=== PATIENT | female | born 2000 | race Hispanic/Latino ===

== ENCOUNTER 2020-01-15 09:42 | Emergency (ER) | payer MEDICAID, SELFPAY ==
[2020-01-15 09:44] VITALS: BP 121/84; PULSE 85; RESP 18; TEMP 36.3; O2SAT 99; BMI 37.2
[2020-01-15 09:51] VITALS: RESP 16
--- NOTE | 2020-01-15 10:02 | EKG12_ITS ---
Test Reason : ABD PAIN Blood Pressure : / mmHG Vent. Rate : 076 BPM Atrial Rate : 076 BPM P-R Int : 160 ms QRS Dur : 070 ms QT Int : 374 ms P-R-T Axes : 059 040 039 degrees QTc Int : 420 ms Normal sinus rhythm with sinus arrhythmia Normal ECG Confirmed by MANDY CROFT, MEET ([id number]), editorial project manager JOSE ROBERTO TRENT ([id number]) on 01/18/2020 1:19:06 PM Referred By: PETER Confirmed By:MEET GALVAN MD
--- NOTE | 2020-01-15 10:04 | ED.DCSUM_ITS ---
- ER Visit Summary Date of Service: 01/15/20 Chief Complaint: Abdominal pain History of Present Illness: The patient is a 19 F who lives in [place]. 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 She reports that she has abdominal pain that began approximately 1 week ago. Is a continuous waxing and waning cramping pain. It is 10 out of 10 at worst 9 out of 10 currently. It is worsened by breathing. Is unchanged with movement. Nothing makes this better. She is had nausea without vomiting. No diarrhea. Her last bowel was yesterday. No melena or hematochezia. She denies dysuria, but has had frequency. Patient last menstrual period was December 04. She denies any vaginal bleeding or discharge. She is a G0, P0 and is sexually active. On review of systems patient reports that she has chest pain that is been constant and sharp for the past week. 10 out of 10 at worst and 6 out of 10 currently. It is unchanged by exertion or deep breaths. Is decreased with laying down. She denies any trauma to her chest. She also complains of a headache that is 10 out of 10 in severity. Is a diffuse throbbing pain. She does have a history of similar headaches. She denies any injury to her head. Physical Examination: Vitals: Stable. Afebrile. General: Well-nourished and well-developed. Head: Normocephalic atraumatic. Neck: Supple, no lymphadenopathy. No JVD. Nontender. Cardiovascular: Regular rate and rhythm. No murmurs. Respiratory: No respiratory distress. Clear to auscultation bilaterally. Abdominal: Soft, mild diffuse tenderness to palpation, nondistended, normal bowel sounds. No guarding, rebound, or peritoneal signs. Back: Nontender. Extremities: Nontender, no edema. Skin: Normal color, no rash. Neurologic: Alert and oriented ?3. Cranial nerves II through XII are intact. Normal strength and sensation. Psych: Normal affect. Test Results: EKG is sinus at 76 with no acute changes. CBC is normal. Chem-7 is more for chloride of 108. LFTs are marked for globulin 4.3. Lipase is 64. Quantitative hCG was 192. Urinalysis has excite esterase and 1+ bacteria. Clinical Impression(s) from Imaging Studies Obstetrics Ultrasound 01/15/20 10:47 IMPRESSION: No intrauterine gestation is seen. Thickened endometrium. Dominant follicle in the left ovary. Electronically Signed: Wally Carver, at 11:54 EDT , Service support , Emergency Department Course and Treatment: Patient had an IV placed. She was given a liter normal saline. She was given Toradol and Reglan IV. She is resting more comfortably. Urine was sent for culture. Treatment Plan: Patient was discussed with Dr. Read. She will be discharged with a prescription Zofran. She is given an order for a repeat quantitative hCG in 3 days. Instructed to follow-up in the office following that. Return to the emergency department for any worsening symptoms. Disposition: To home in improved and stable condition. Impression: 1. Early . 2. Abdominal pain. 3. Bacteriuria. This note was generated with [facility] dictation software. It may contain incorrect words, spelling, and punctuation that were not noted in review of the chart prior to signing ED Disposition - Plan for ED Patient: Instructions: ED ECTOPIC RULE OUT Prescriptions: Ondansetron [Zofran Odt] 4 mg PO Q8H PRN PRN #10 tablet PRN Reason: Nausea Referrals: Alisa Birmingham MD [STAFF PHYSICIAN] - 01/18/20
[2020-01-15] MEDS: 0.9% Normal Saline 1,000 ML 1000 ML IV (10:35)
[2020-01-15 10:42] LABS: Absolute Neutrophil Count 3.9 X10^3/uL (2.0-7.7); Basophil# 0.03 X10^3/uL; Basophil% 0.5 % (0-1); Eosinophil# 0.16 X10^3/uL; Eosinophils% 2.6 % (0-5); Hematocrit 38.1 % (37-47); Hemoglobin 12.4 g/dL (12.0-15.0); Lymphocyte % 25.6 % (19-41); Mean Corp Hgb Conc 32.5 g/dL (32-36); Mean Corpuscular Hgb 28.6 pg (27.0-32.0); Mean Platelet Vol. 10.1 fl (6.2-12.0); Monocyte# 0.49 X10^3/uL; Monocyte% 7.9 % (0-10); NRBC Flagged by Analyzer 0 % (0-5); Neutrophil # 3.94 X10^3/uL (2.7-7.7); Neutrophil % 63.1 % (47-70); Platelet Count 242 K/mm3 (150-450); RBC Distribution Width CV 12.6 % (11.6-14.6); RBC Distribution Width SD 40.2 fl (35.1-43.9); Red Blood Count 4.33 M/mm3 (4.2-5.4); White Blood Count 6.2 K/mm3 (4.4-11.0)
[2020-01-15 10:45] LABS: Internal QC Validated? YES +Cl - CLEAR BKGD
[2020-01-15 10:46] LABS: Pregnancy, Serum, hCG Quali. POSITIVE Negative
--- NOTE | 2020-01-15 10:47 | US_ITS ---
STUDY: FIRST TRIMESTER OBSTETRICAL ULTRASOUND REASON FOR EXAM: Female, 19 years old RUQ PAIN HCG 192- LMP WAS IN THE BEGIN ING OF DECEMBER, UNSURE OF DATE LMP: Early December. TECHNIQUE: Transvaginal TECHNICAL QUALITY: Adequate. PRIOR ULTRASOUND: None. FINDINGS: There is no demonstrated intrauterine gestational sac. There is a visualized yolk sac. The placenta is non-visualized. There is no demonstrated embryo ( pole). The uterus measures 8 cm x 5.3 cm x 4.1 cm. There is no demonstrated uterine fibroid. The cervix is closed. The endometrium is thickened and measures 13 mm. The right ovary measures 3.1 cm x 2.3 cm x 1.6 cm. There is no right ovarian cyst. There is no visualized right adnexal mass or complex lesion. The left ovary measures 4.1 cm x 2.6 cm x 3 cm. A dominant follicle is seen within the ovary measuring 1.7 cm x 1.6 cm x 1.6 cm. There is no visualized left adnexal mass or complex lesion. There is no fluid in the cul de sac. US/Transvaginal w/Preg US IMPRESSION: No intrauterine gestation is seen. Thickened endometrium. Dominant follicle in the left ovary. Electronically Signed: Wally Carver, at 11:54 EDT , Service support ,
[2020-01-15 10:53] LABS: ALB/GLOB Ratio 0.9 RATIO (0.9-2.4); AST(SGOT) 18 U/L (15-37); Alanine Aminotransfer ALT/SGPT 17 U/L (13-56); Albumin, Serum 3.8 g/dL (3.2-5.0); Alkaline Phosphatase 85 U/L (45-117); Anion Gap 5 (5-15); BUN 8 mg/dL (7-18); BUN/Creat Ratio 11.5 RATIO (10-20); Chloride 108 mmol/L (98-107); EST Glomerular Filtration Rate 114 mL/min (>60); Est Glom Filt Rate - Afr Amer 138 mL/min (>60); Estimated Creatinine Clearance 106.05 ml/min; Globulin 4.3 g/dL (2.2-4.2); Glucose 86 mg/dL (74-106); Lipase 64 U/L (73-393); Potassium 4.1 mmol/L (3.5-5.1); Protein, Total 8.1 g/dL (6.4-8.2); Sodium Level 137 mmol/L (136-145)
[2020-01-15 11:05] LABS: hCG Titer Quant., Serum 192 mIU/mL (1-3)
[2020-01-15 11:32] LABS: Red Blood Cells-Urine 0 SEEN /hpf (0-5)
[2020-01-15 11:48] LABS: Color, Urine Yellow (Yellow); Glucose, Dipstick Normal (Normal); Ketone-Dipstick Negative (Negative); Leukocyte Esterase-Dipstick 25 /ul (Negative); Nitrite-Dipstick Negative (Negative); Occult Blood-Urine Negative /ul (Negative); Protein-Dipstick 15 mg/dl (Negative); Urine Bilirubin Dipstick Negative (Negative); Urine Clarity Sl. Cloudy (Clear); Urine Urobilinogen Normal (Normal)
[2020-01-15 12:00] LABS: Bacteria 1+ /hpf (None Seen); Mucous, Urine 1+ /hpf (<or=2+); Squamous Epithelial Cells - UA 0-5 SEEN /hpf (5-10); White Blood Cells 0-5 SEEN /hpf (0-5)
[2020-01-15 12:20] VITALS: BP 126/74; BP 127/84; PULSE 82; RESP 15; O2SAT 98
== END 2020-01-15 12:22 | disposition home or self-care (01) ==
LOC: ED 10:55
PROVIDERS: Emergency Provider Emergency Medicine
DX: O26.891 Other specified pregnancy related conditions, first trimester (principal); R93.89 Abnormal findings on diagnostic imaging of other specified body structures; R10.9 Unspecified abdominal pain; R82.71 Bacteriuria; Z3A.00 Weeks of gestation of pregnancy not specified
CPT/HCPCS: 76817; 80053; 81001; 83690; 84702; 84703; 85025; 87086; 87088; 93005; 96361; 96374; 96375; 99284; J7030

== ENCOUNTER → 2020-01-18 09:01 | Outpatient (CLI) | payer MEDICAID, SELFPAY ==
[2020-01-15 09:44] VITALS: BMI 37.2
[2020-01-18 10:24] LABS: hCG Titer Quant., Serum 804 mIU/mL (1-3)
== END ==
PROVIDERS: Referring Provider Emergency Medicine; Visit Provider Emergency Medicine
DX: Z33.1 Pregnant state, incidental (principal)
CPT/HCPCS: 36415; 84702